=== PATIENT | male | born 1950 | race Caucasian/White ===

== ENCOUNTER 2018-11-28 22:30 | Emergency (ER) | payer MEDICARE, OTHER ==
[2018-11-28] MEDS ORDERED: cefTRIAXone 1 GM Vial IM ONE (22:45)
--- NOTE | 2018-11-28 22:48 | EDM.PDOC ---
ED HPI GENERAL MEDICAL PROBLEM - General Chief Complaint: Skin Complaint Stated Complaint: INFECTION ON LOWER LT LEG Time Seen by Provider: 11/28/18 22:48 - History of Present Illness INITIAL COMMENTS - FREE TEXT/NARRATIVE: HISTORY AND PHYSICAL: History of present illness: Patient 5-year-old white male presents with concern of cellulitis left leg he states approximately 9 days prior he injured this when he abraded it striking it on a footstool he denies fever chills nausea vomiting or other complaints he states this abrasion has had persistent redness and slight warmth there's been no fever no chills he states pain has improved Review of systems: As per history of present illness and below otherwise all systems reviewed and negative. Past medical history: As per history of present illness and as reviewed below otherwise noncontributory. Surgical history: As per history of present illness and as reviewed below otherwise noncontributory. Social history: No reported history of drug or alcohol abuse. Family history: As per history of present illness and as reviewed below otherwise noncontributory. Physical exam: HEENT: Atraumatic, normocephalic, pupils reactive, negative for conjunctival pallor or scleral icterus, mucous membranes moist, throat clear, neck supple, nontender, trachea midline. Lungs: Clear to auscultation, breath sounds equal bilaterally, chest nontender. Heart: S1S2, regular, negative for clicks, rubs, or JVD. Abdomen: Soft, nondistended, nontender. Negative for masses or hepatosplenomegaly. Negative for costovertebral tenderness. Pelvis: Stable nontender. Genitourinary: Deferred. Rectal: Deferred. Extremities: Patient has an excoriated area at the anterior aspect of his mid left leg some surrounding erythema slight warmth no fluctuance no crepitation CMS neurovascular exam is unremarkable Neuro: Awake, alert, oriented. Cranial nerves II through XII unremarkable. Cerebellum unremarkable. Motor and sensory unremarkable throughout. Exam nonfocal. Diagnostics: CBC CMP blood cultures 2 x-ray left tib-fib Therapeutics: Rocephin 1 g IM Impression: 1 cellulitis left leg Definitive disposition and diagnosis as appropriate pending reevaluation and review of above. - Related Data Allergies Allergy/AdvReac Type Severity Reaction Status Date / Time No Known Allergies Allergy Verified 08/16/16 10:57 Home Meds: Home Meds Tamsulosin [Flomax] 1 tab PO DAILY PRN 12/14/14 [History] Past Medical History - Past Health History Medical/Surgical History: Denies Medical/Surgical History Cardiovascular History: Reports: None Respiratory History: Reports: None Genitourinary History: Reports: None, BPH, Other (See Below) Neurological History: Reports: None Psychiatric History: Reports: None Endocrine/Metabolic History: Reports: None Hematologic History: Reports: None Immunologic History: Reports: None Oncologic (Cancer) History: Reports: None Dermatologic History: Reports: None - Infectious Disease History Infectious Disease History: Reports: Measles - Past Surgical History HEENT Surgical History: Reports: Cataract Surgery, Tonsillectomy GI Surgical History: Reports: Hernia, Inguinal Musculoskeletal Surgical History: Reports: Hip Replacement Social & Family History - Family History Family Medical History: Noncontributory - Caffeine Use Caffeine Use: Reports: Coffee Caffeine Use Comment: 3cups/day ED ROS GENERAL - Review of Systems Review Of Systems: ROS reveals no pertinent complaints other than HPI. ED EXAM, SKIN/RASH Exam: See Below (See dictation) Course - Orders/Labs/Meds Orders: Active Orders 24 hr Category Date Time Status Tibia Fibula Lt [CR] Stat Exams 11/28/18 22:45 Ordered CBC WITH AUTO DIFF [HEME] Stat Lab 11/28/18 22:44 Ordered COMPREHENSIVE METABOLIC PN,CMP [CHEM] Stat Lab 11/28/18 22:44 Ordered CULTURE BLOOD [BC] Stat Lab 11/28/18 22:45 Ordered CULTURE BLOOD [BC] Stat Lab 11/28/18 22:45 Ordered cefTRIAXone [Rocephin] Med 11/28/18 22:45 Once 1 gm IM ONETIME ONE Blood Culture x2 Reflex Set [OM.PC] Stat Oth 11/28/18 22:45 Ordered Departure - Departure Time of Disposition: 22:47 Disposition: Home, Self-Care 01 Condition: Good Clinical Impression: Cellulitis - Discharge Information Referrals: PCP,None [Primary Care Provider] - Additional Instructions: The following information is given to patients seen in the emergency department who are being discharged to home. This information is to outline your options for follow-up care. We provide all patients seen in our emergency department with a follow-up referral. The need for follow-up, as well as the timing and circumstances, are variable depending upon the specifics of your emergency department visit. If you don't have a primary care physician on staff, we will provide you with a referral. We always advise you to contact your personal physician following an emergency department visit to inform them of the circumstance of the visit and for follow-up with them and/or the need for any referrals to a consulting specialist. The emergency department will also refer you to a specialist when appropriate. This referral assures that you have the opportunity for followup care with a specialist. All of these measure are taken in an effort to provide you with optimal care, which includes your followup. Under all circumstances we always encourage you to contact your private physician who remains a resource for coordinating your care. When calling for followup care, please make the office aware that this follow-up is from your recent emergency room visit. If for any reason you are refused follow-up, please contact the [facility] emergency department at and asked to speak to the emergency department charge nurse. [facility] [address] [place] [id number] Bactrim as prescribed keep leg elevated follow-up wound recheck with private medical doctor in her clinic above called to schedule appointment return as needed as discussed - My Orders Last 24 Hours: My Active Orders 11/28/18 22:44 CBC WITH AUTO DIFF [HEME] Stat COMPREHENSIVE METABOLIC PN,CMP [CHEM] Stat 11/28/18 22:45 Tibia Fibula Lt [CR] Stat CULTURE BLOOD [BC] Stat CULTURE BLOOD [BC] Stat cefTRIAXone [Rocephin] 1 gm IM ONETIME ONE Blood Culture x2 Reflex Set [OM.PC] Stat - Assessment/Plan Last 24 Hours: My Active Orders 11/28/18 22:44 CBC WITH AUTO DIFF [HEME] Stat COMPREHENSIVE METABOLIC PN,CMP [CHEM] Stat 11/28/18 22:45 Tibia Fibula Lt [CR] Stat CULTURE BLOOD [BC] Stat CULTURE BLOOD [BC] Stat cefTRIAXone [Rocephin] 1 gm IM ONETIME ONE Blood Culture x2 Reflex Set [OM.PC] Stat
[2018-11-28 23:35] LABS: CHLORIDE,CL 106 mmol/L (98-107); SODIUM,NA 140 mmol/L (136-148)
--- NOTE | 2018-11-29 00:02 | CR ---
Indication: Left tibia-fibula infection. Technique: Two views, 4 films Comparison: None Findings/Impression: Mild soft tissue swelling without evidence of fracture or radiographic evidence of osteomyelitis. No subcutaneous air seen. Joint spaces are normally preserved. Dictated by Hayes Clarke MD @ Nov 28 2018 11:59PM Signed by Dr. Hayes Clarke @ Nov 29 2018 12:00AM
[2018-11-29 00:33] VITALS: BP 126/72
== END 2018-11-29 00:26 | disposition home or self-care (01) ==
LOC: MW.ED 22:30
DX: L03.116 Cellulitis of left lower limb (principal); Z98.49 Cataract extraction status, unspecified eye; Z98.890 Other specified postprocedural states
CPT/HCPCS: 36415; 73590; 80053; 85025; 87040; 96372; 99283; J0696; J2001

== ENCOUNTER 2018-11-30 15:21 | Emergency (ER) | payer MEDICARE, OTHER ==
--- NOTE | 2018-11-30 15:30 | EDM.PDOC ---
ED HPI GENERAL MEDICAL PROBLEM - General Chief Complaint: Skin Complaint Stated Complaint: RASH FROM MEDS Time Seen by Provider: 11/30/18 15:30 Source of Information: Reports: Patient History Limitations: Reports: No Limitations - History of Present Illness INITIAL COMMENTS - FREE TEXT/NARRATIVE: HISTORY AND PHYSICAL: History of present illness: Patient is a 68-year-old male who presents to the emergency room today with complaints of an allergic reaction from an antibiotic he was started on for treatment of cellulitis. Patient states approximately 2 weeks ago he had injured his left lower extremity resulting in a small laceration. He states it somewhat improved but over the past 4 days had noticed some redness and swelling to the lacerated area. He was evaluated in the emergency room on given a shot of Rocephin IM and started on Bactrim DS. He has had 4 doses of the Bactrim DS and since has noticed progressively worsening rash and itching to his axilla and groin area. He states that the soft tissue swelling and redness has seemed to improve to the cellulitic area. He has noticed the rash, groin itching and slight swelling of his upper lip. He has not taking any oral medications although has applied some Neosporin to the bilateral axilla Review of systems: As per history of present illness and below otherwise all systems reviewed and negative. Past medical history: As per history of present illness and as reviewed below otherwise noncontributory. Surgical history: As per history of present illness and as reviewed below otherwise noncontributory. Social history: See social history for further information Family history: As per history of present illness and as reviewed below otherwise noncontributory. Physical exam: General: Well-developed and well-nourished 68-year-old male. Alert and oriented. Nontoxic appearing and in no acute distress. HEENT: Atraumatic, normocephalic, pupils equal and reactive bilaterally, negative for conjunctival pallor or scleral icterus, mucous membranes moist, TMs normal bilaterally, throat clear, neck supple, nontender, trachea midline. No drooling or trismus noted. No meningeal signs. No hot potato voice noted. Lungs: Clear to auscultation, breath sounds equal bilaterally, chest nontender. Heart: S1S2, regular rate and rhythm without overt murmur Abdomen: Soft, nondistended, nontender. Negative for masses or hepatosplenomegaly. Negative for costovertebral tenderness. Pelvis: Stable nontender. Genitourinary: Deferred. Rectal: Deferred. Skin: Hives noted to bilateral axilla area. Mild erythema noted to bilateral groin area (appears as he's been scratching). Otherwise skin is intact, warm, dry. No lesions or rashes noted. Extremities: Atraumatic, moves all extremities per self without difficulty or deficits, negative for cords or calf pain. Neurovascular unremarkable. Neuro: Awake, alert, oriented. Cranial nerves II through XII unremarkable. Cerebellum unremarkable. Motor and sensory unremarkable throughout. Exam nonfocal. Notes: 11/28/2018: CBC and CMP are unremarkable. The x-ray of the tib-fib showed mild soft tissue swelling without evidence of fracture or osteomyelitis. Repeat CBC is within normal limits. I did offer him admission which he declines. Discussed signs and symptoms that would prompt him to return to the emergency room. Encouraged him to stop his Bactrim DS and now consider this an allergy. We'll start him on Keflex and a Medrol Dosepak. Supportive care measures were reviewed and discussed. Voices understanding and is agreeable to plan of care. Denies any further questions or concerns at this time. Diagnostics: CBC Therapeutics: Benadryl, Solu-Medrol Prescription: Keflex Impression: Allergic reaction Cellulitis Plan: 1. Stop taking the Bactrim DS. Please take the Keflex as prescribed. 2. While symptomatic continue to routinely take Benadryl 50mg every 4-6 hours and Zantac 150mg twice daily. Take the Medrol dose pack as prescribed. 3. You may use topical calamine lotion, cool tempid oatmeal baths, Aveeno bath/ lotions. 4. Please follow up with your Primary care doctor as we discussed. Return to the ED as needed and as discussed. Definitive disposition and diagnosis as appropriate pending reevaluation and review of above. - Related Data Allergies Allergy/AdvReac Type Severity Reaction Status Date / Time sulfamethoxazole Allergy Hives Verified 11/30/18 15:34 [From Bactrim] trimethoprim [From Bactrim] Allergy Hives Verified 11/30/18 15:34 Home Meds: Home Meds Tamsulosin [Flomax] 1 tab PO DAILY PRN 12/14/14 [History] cephALEXin [Keflex] 500 mg PO BID 10 Days #20 cap 11/30/18 [Rx] methylPREDNISolone [Medrol] 1 dose PO DAILY #1 dospk 11/30/18 [Rx] Past Medical History - Past Health History Medical/Surgical History: Denies Medical/Surgical History HEENT History: Reports: None Cardiovascular History: Reports: None Respiratory History: Reports: None Gastrointestinal History: Reports: None Genitourinary History: Reports: None, BPH, Other (See Below) Musculoskeletal History: Reports: None Neurological History: Reports: None Psychiatric History: Reports: None Endocrine/Metabolic History: Reports: None Hematologic History: Reports: None Immunologic History: Reports: None Oncologic (Cancer) History: Reports: None Dermatologic History: Reports: None - Infectious Disease History Infectious Disease History: Reports: Measles - Past Surgical History HEENT Surgical History: Reports: Cataract Surgery, Tonsillectomy GI Surgical History: Reports: Hernia, Inguinal Musculoskeletal Surgical History: Reports: Hip Replacement Social & Family History - Family History Family Medical History: Noncontributory - Caffeine Use Caffeine Use: Reports: Coffee Caffeine Use Comment: 3cups/day ED ROS GENERAL - Review of Systems Review Of Systems: ROS reveals no pertinent complaints other than HPI. ED EXAM, SKIN/RASH Exam: See Below (See dictation) Course - Vital Signs Last Recorded V/S: Last Vital Signs Temp 97.7 F 11/30/18 15:32 Pulse 82 11/30/18 15:32 Resp 16 11/30/18 15:32 BP 131/68 11/30/18 15:32 Pulse Ox 95 11/30/18 15:32 - Orders/Labs/Meds Labs: Laboratory Tests 11/30/18 Range/Units 15:57 WBC 6.37 (4.0-11.0) K/uL RBC 4.87 (4.50-5.90) M/uL Hgb 15.6 (13.0-17.0) g/dL Hct 44.5 (38.0-50.0) % MCV 91.4 (80.0-98.0) fL MCH 32.0 (27.0-32.0) pg MCHC 35.1 (31.0-37.0) g/dL RDW Std Deviation 43.3 (28.0-62.0) fl RDW Coeff of Skyla 13 (11.0-15.0) % Plt Count 163 (150-400) K/uL MPV 9.80 (7.40-12.00) fL Neut % (Auto) 74.5 (48.0-80.0) % Lymph % (Auto) 15.4 L (16.0-40.0) % [place] % (Auto) 8.0 (0.0-15.0) % Eos % (Auto) 1.9 (0.0-7.0) % Baso % (Auto) 0.2 (0.0-1.5) % Neut # (Auto) 4.8 (1.4-5.7) K/uL Lymph # (Auto) 1.0 (0.6-2.4) K/uL [place] # (Auto) 0.5 (0.0-0.8) K/uL Eos # (Auto) 0.1 (0.0-0.7) K/uL Baso # (Auto) 0.0 (0.0-0.1) K/uL Nucleated RBC % 0.0 /100WBC Nucleated RBCs # 0 K/uL Meds: Medications Discontinued Medications Generic Name Dose Route Start Last Admin Trade Name Freq PRN Reason Stop Dose Admin Diphenhydramine HCl 50 mg 11/30/18 15:35 11/30/18 15:49 Benadryl PO 11/30/18 15:36 50 mg ONETIME ONE Administration Methylprednisolone Sodium Succinate 125 mg 11/30/18 15:35 11/30/18 15:48 Solu-Medrol IM 11/30/18 15:36 125 mg ONETIME ONE Administration Departure - Departure Time of Disposition: 15:42 Disposition: Home, Self-Care 01 Clinical Impression: Allergic reaction caused by a drug Qualifiers: Encounter type: initial encounter Qualified Code(s): T78.40XA - Allergy, unspecified, initial encounter Cellulitis Qualifiers: Site of cellulitis: extremity Site of cellulitis of extremity: lower extremity Laterality: left Qualified Code(s): L03.116 - Cellulitis of left lower limb - Discharge Information Prescriptions: cephALEXin [Keflex] 500 mg PO BID 10 Days #20 cap methylPREDNISolone [Medrol] 1 dose PO DAILY #1 dospk Referrals: PCP,None [Primary Care Provider] - Forms: ED Department Discharge Additional Instructions: The following information is given to patients seen in the emergency department who are being discharged to home. This information is to outline your options for follow-up care. We provide all patients seen in our emergency department with a follow-up referral. The need for follow-up, as well as the timing and circumstances, are variable depending upon the specifics of your emergency department visit. If you don't have a primary care physician on staff, we will provide you with a referral. We always advise you to contact your personal physician following an emergency department visit to inform them of the circumstance of the visit and for follow-up with them and/or the need for any referrals to a consulting specialist. The emergency department will also refer you to a specialist when appropriate. This referral assures that you have the opportunity for follow-up care with a specialist. All of these measure are taken in an effort to provide you with optimal care, which includes your follow-up. Under all circumstances we always encourage you to contact your private physician who remains a resource for coordinating your care. When calling for follow-up care, please make the office aware that this follow-up is from your recent emergency room visit. If for any reason you are refused follow-up, please contact the [facility] Emergency Department at and asked to speak to the emergency department charge nurse. [facility] [address] [place] [id number] [place] [address] 1. Stop taking the Bactrim DS. Please take the Keflex as prescribed. 2. While symptomatic continue to routinely take Benadryl 50mg every 4-6 hours and Zantac 150mg twice daily. Take the Medrol dose pack as prescribed. 3. You may use topical calamine lotion, cool tempid oatmeal baths, Aveeno bath/ lotions. 4. Please follow up with your Primary care doctor as we discussed. Return to the ED as needed and as discussed.
[2018-11-30 15:34] VITALS: BP 131/68
[2018-11-30] MEDS ORDERED: methylPREDNISolone Sodium Succinate 125 MG/2 ML SDV IM ONE (15:35)
[2018-11-30] MEDS ORDERED: diphenhydrAMINE 50 MG Cap PO ONE (15:35)
== END 2018-11-30 16:35 | disposition home or self-care (01) ==
LOC: MW.ED 15:21
DX: L50.0 Allergic urticaria (principal); T36.8X5A Adverse effect of other systemic antibiotics, initial encounter; L03.116 Cellulitis of left lower limb; Z88.2 Allergy status to sulfonamides; Z88.1 Allergy status to other antibiotic agents
CPT/HCPCS: 36415; 85025; 96372; 99283; A9270; J2930

== ENCOUNTER 2021-05-05 10:47 | Emergency (ER) | payer MEDICARE, OTHER ==
[2021-05-05] MEDS ORDERED: Sodium Chloride 0.9% 1,000 ML IV ONE (11:00)
[2021-05-05] MEDS ORDERED: Sodium Chloride 0.9% 2.5 ML Syringe FLUSH PRN (11:00)
[2021-05-05] MEDS ORDERED: Sodium Chloride 0.9% 10 ML Syringe FLUSH PRN (11:00)
--- NOTE | 2021-05-05 11:02 | EDM.PDOC ---
ED HPI GENERAL MEDICAL PROBLEM - General Chief Complaint: Neuro Symptoms/Deficits Stated Complaint: MEMORY LOSS/CONFUSION Time Seen by Provider: 05/05/21 10:49 - History of Present Illness INITIAL COMMENTS - FREE TEXT/NARRATIVE: HISTORY AND PHYSICAL: History of present illness: Is a 70-year-old gentleman with no significant past medical history who presents ER today secondary to confusion that was noted by a friend. 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 His friends were concerned that he did not show up and did not call so they went to the house. Upon arrival to his home patient appeared to be confused and repeating words and saying things that did not make sense. Upon arrival to the ED, the patient appears to be alert awake and orient x3 and is able to give me a relatively good history. Patient denies any history of hypertension, diabetes, liver, lung, kidney problems. Patient denies any history of heart disease or strokes in the past. Patient reports that he had his booster shot for Covid yesterday in his right arm and did not sleep well last night after his immunization. Patient reports that he does not feel confused at this time. He reports he does feel fatigued and tired. Friend who is with patient reports that normally he is extremely sharp and she is able to have a very clear conversation with him however today she was having a hard time having a normal conversation with him. Patient's friend reports that he would start having tangential thoughts during conversations and would sometimes forget what he was saying. She reports that he was having a hard time coming up with the right words during our conversation. Patient reports that he lives alone. Patient reports no family members here in [place] and that his daughter lives in [facility]. Patient denies any recent head trauma or injury. Patient denies any headache or nuchal rigidity. Patient has any photophobia, double vision, blurred vision, weakness to his upper or lower extremities, difficulty walking. Patient denies any dysuria, frequency, urgency. Patient denies any recent fevers, shakes, chills, cough, URI symptoms, abdominal pain, chest pain. Review of systems: As per history of present illness and below otherwise all systems reviewed and negative. Past medical history: As per history of present illness and as reviewed below otherwise noncontributory. Surgical history: As per history of present illness and as reviewed below otherwise noncontributory. Social history: No reported history of drug abuse. Family history: As per history of present illness and as reviewed below otherwise noncontributory. Physical exam: This patient was seen and evaluated during the 2019 SARS-CoV-2 novel coronavirus pandemic period. Community viral transmission is ongoing at time of this encounter and the emergency department is operating under pandemic response procedures. Constitutional: Patient is oriented to person, place, and time. Appears well- developed and well-nourished. No distress. HEENT: Moist mucous membranes Head: Normocephalic and atraumatic Eyes: Right eye exhibits no discharge. Left eye exhibits no discharge. No scleral icterus Neck: Normal range of motion. No tracheal deviation present. Cardiovascular: Normal rate and regular rhythm. Pulmonary: Effort normal, no respiratory distress. Abdominal: No distention Musculoskeletal: Normal range of motion Neurologic: Alert and oriented to person, place and time. Skin: Muniz, warm and dry. Psychiatric: Normal mood and affect. Behavior is normal. Judgment and thought content normal. Neuro: A&Ox3. Cranial nerves II-XII grossly intact, 5/5 strength to bilateral upper and lower extremities, sensation intact to bilateral upper and lower extremities, no nystagmus, PERRLA, EOMI, normal speech, proprioception intact to bilateral lower extremities, normal finger to nose test, gait normal Nursing note and vital signs have been reviewed 1a) Level of consciousness: 0=alert; 1=not alert but arousable by minor stimulation; 2=not alert: requires repeated stimulation to attend or is obtunded and requires strong or painful stimulation to make movements; 3=responds only with reflex motor or autonomic effects or totally unresponsive, flaccid and areflexic SCORE 0 1b) LOC questions ("what month is it?", "how old are you?"): 0=answers both correctly; 1=answers one correctly; 2=answers neither correctly SCORE 0 1c) LOC commands (command patient to "open and close your eyes. Stadium Manager and release your hand.): 0=performs both correctly; 1=performs one correctly; 2=performs neither correctly SCORE 0 2) Best gaze ("follow my finger"): 0=normal; 1=partial gaze palsy; 2=forced deviation or total gaze paresis SCORE 0 3) Visual almazan (use confrontation, finger counting, or visual threat. confront upper/lower quadrants of visual field): 0=no visual loss; 1=partial hemianopsia; 2=complete hemianopsia; 3=bilateral hemianopsia SCORE 0 4) Facial palsy (by words or pantomime, encourage patient to: "Show me your teeth. Raise your eyebrows. Close your eyes."): 0=normal symmetrical movement; 1=minor paralysis (flattened nasolabial fold, asymmetry on smiling); 2=partial paralysis (lower face); 3=complete paralysis SCORE 0 5) Arm motor (alternately position patient's arms. extend each arm with palms down [90 degrees if sitting, 45 degrees if supine] - test each arm in turn and start with nonparetic arm first): 0=no drift; 1=drift (arm falls before 10 seconds); 2=some effort vs. gravity; 3=no effort vs. gravity; 4=no movement; UN (untestable)=amputation or joint fusion SCORE 0 6) Leg motor (alternately position patient's legs. extend each leg [30 degrees, always while supine] - test nonparetic leg first): 0=no drift; 1=drift (leg falls before 5 seconds); 2=some effort vs. gravity; 3= no effort vs. gravity; 4=no movement; UN=amputation or joint fusion SCORE 0 7) Limb ataxia (ask patient [eyes open] to: "touch your finger to your nose. touch your heel to your sage"): 0=absent; 1=present in one limb; 2=present in two or more limbs; UN=amputation or joint fusion SCORE 0 8) Sensory (test as many body parts as possible [arms and not hands, legs, deniz nk, face] for sensation using pinprick or noxious stimuli 0): 0=normal; 1=mild to moderate sensory loss; 2=severe to total sensory loss SCORE 0 9) Best language (using pictures and a sentence list, ask patient to "describe what you see in this picture. Name the items in this picture. Read these sentences"): 0=no aphasia, 1=mild to moderate aphasia; 2=severe aphasia; 3=mute, global aphasia SCORE 0 10) Dysarthria (using a simple word list, ask patient to: "read these words" or "repeat these words"): 0=normal articulation; 1=mild to moderate dysarthria; 2=severe dysarthria; UN=intubated or other physical barrier SCORE 0 11) Extinction and inattention (sufficient information to determine these scores may have been obtained during the prior testing): 0=no abnormality; 1=visual, tactile, auditory, spatial or personal inattention; 2=profound zulma-inattention or extinction to more than one modality SCORE 0 TOTAL NIHSS Score:0 Diagnostics: EKG: As interpreted by ER physician: Yoshi: Nonspecific ST-T wave abnormalities Normal axis No evidence of ST elevation GA Normal sinus rhythm heart rate of 100 May 05, 2021 11:17 AM CBC, CMP within normal limits. Therapeutics: NSS x1 L Assessment and plan: This is a 70-year-old gentleman who was brought into the ER today secondary to confusion noted by friends. Patient reports that he had his Covid vaccine yesterday and today did not feel well so did not go to work. His friend were concerned because normally he would call if he did not going to work however today the did not receive any phone calls for him so they went to his house to check up on him. They report that when they went to check up on him he was not acting like himself and was can fused and having a hard time having a conversation with them. The friends report that he is at baseline is extremely articulate and they are able to have normal conversation with him however they felt that today he was more confused than usual. Patient in the ED is alert aw gilma and orient x3 and appears appropriate but does have episodes of confusion with regards to forgetting words that he was about to say and his train of thought. Patient reports that he did have his Covid vaccination yesterday and did not sleep well. Patient's labs are all within normal limits. Patient CT scan of his head did not reveal any acute pathology. We will obtain a urine patient 12:43 PM: Patient's labs are all within normal limits. Patient has a normal CBC, CMP, urinalysis, CT of his head. Patient has been monitored here in the ED for approximately 2 hours. Patient has remained stable during that time period. I have discussed with the patient the option of admitting him for observation secondary to the concern from his friends of his confusion. Patient reports he does not wish to be admitted to the hospital and does not feel confused. Patient reports that he feels well and thinks he was just fatigued from not sleeping well last night and is requesting to be discharged home. At this time, the patient is refusing to be admitted. I did discuss with the patient that is a possibility that he might have a small stroke that I do given his symptoms. Patient reports that he does not feel that he had a stroke and he feels that he is at his baseline and just tired. Patient currently is exhibiting both capacity and the competency for medical decision-making. Utilizing shared decision making, I feel that the patient can be safely discharged home and I will respect his autonomy and allow him to be discharged per his request. Patient understands to return back to the ED if he should change his mind or develop any new or concerning symptoms. Reassessment at the time of disposition demonstrates that the patient is in no acute distress. The patient has remained stable throughout the entire ED visit and is without objective evidence for acute process requiring urgent intervention or hospitalization. The patient is stable for discharge, counseling is provided as documented above, discussed symptomatic treatment and specific conditions for return. I have spoken with the patient/caregiver and discussed todays findings, in addition to providing specific details for the plan of care. Questions are answered and there is agreement with the plan. Definitive disposition and diagnosis as appropriate pending reevaluation and review of above. - Related Data Allergies Allergy/AdvReac Type Severity Reaction Status Date / Time sulfamethoxazole Allergy Hives Verified 05/05/21 11:14 [From Bactrim] trimethoprim [From Bactrim] Allergy Hives Verified 05/05/21 11:14 Home Meds: Home Meds Tamsulosin [Flomax] 1 tab PO DAILY PRN 12/14/14 [History] methylPREDNISolone [Medrol] 1 dose PO DAILY #1 dospk 11/30/18 [Rx] Past Medical History - Past Health History Medical/Surgical History: Denies Medical/Surgical History HEENT History: Reports: None Cardiovascular History: Reports: None Respiratory History: Reports: None Gastrointestinal History: Reports: None Genitourinary History: Reports: None, BPH, Other (See Below) Musculoskeletal History: Reports: None Neurological History: Reports: None Psychiatric History: Reports: None Endocrine/Metabolic History: Reports: None Hematologic History: Reports: None Immunologic History: Reports: None Oncologic (Cancer) History: Reports: None Dermatologic History: Reports: None - Infectious Disease History Infectious Disease History: Reports: Measles - Past Surgical History HEENT Surgical History: Reports: Cataract Surgery, Tonsillectomy GI Surgical History: Reports: Hernia, Inguinal Musculoskeletal Surgical History: Reports: Hip Replacement Social & Family History - Family History Family Medical History: No Pertinent Family History - Caffeine Use Caffeine Use: Reports: Coffee Caffeine Use Comment: 3cups/day ED ROS GENERAL - Review of Systems Review Of Systems: See Below ED EXAM, GENERAL - Physical Exam Exam: See Below Course - Vital Signs Last Recorded V/S: Last Vital Signs Temp 98.2 F 05/05/21 12:34 Pulse 60 05/05/21 12:34 Resp 18 05/05/21 12:34 BP 142/79 H 05/05/21 12:34 Pulse Ox 97 05/05/21 12:34 - Orders/Labs/Meds Orders: Active Orders 24 hr Category Date Time Status UA W/MAKI RFLX IF INDICATED [URIN] Stat Lab 05/05/21 12:33 Ordered Sodium Chloride 0.9% [Saline Flush] Med 05/05/21 11:00 Active 10 ml FLUSH ASDIRECTED PRN Sodium Chloride 0.9% [Saline Flush] Med 05/05/21 11:00 Active 2.5 ml FLUSH ASDIRECTED PRN Saline Lock Insert [OM.PC] Stat Oth 05/05/21 11:00 Ordered Medication Orders Sodium Chloride (Sodium Chloride 0.9% 10 Ml Syringe) 10 ml FLUSH ASDIRECTED PRN PRN Reason: Keep Vein Open Last Admin: 05/05/21 11:19 Dose: 10 ml Documented by: RACHEL Sodium Chloride (Sodium Chloride 0.9% 2.5 Ml Syringe) 2.5 ml FLUSH ASDIRECTED PRN PRN Reason: Keep Vein Open Last Admin: 05/05/21 11:19 Dose: 2.5 ml Documented by: RACHEL Labs: Laboratory Tests 05/05/21 05/05/21 05/05/21 Range/Units 10:53 11:15 11:15 WBC 7.43 (4.0-11.0) K/uL RBC 5.33 (4.50-5.90) M/uL Hgb 17.2 H (13.0-17.0) g/dL Hct 47.6 (38.0-50.0) % MCV 89.3 (80.0-98.0) fL MCH 32.3 H (27.0-32.0) pg MCHC 36.1 (31.0-37.0) g/dL RDW Std Deviation 41.7 (28.0-62.0) fl RDW Coeff of Skyla 13 (11.0-15.0) % Plt Count 170 (150-400) K/uL MPV 9.70 (7.40-12.00) fL Neut % (Auto) 87.9 H (48.0-80.0) % Lymph % (Auto) 6.7 L (16.0-40.0) % Glasscock % (Auto) 5.0 (0.0-15.0) % Eos % (Auto) 0.1 (0.0-7.0) % Baso % (Auto) 0.3 (0.0-1.5) % Neut # (Auto) 6.5 H (1.4-5.7) K/uL Lymph # (Auto) 0.5 L (0.6-2.4) K/uL Glasscock # (Auto) 0.4 (0.0-0.8) K/uL Eos # (Auto) 0.0 (0.0-0.7) K/uL Baso # (Auto) 0.0 (0.0-0.1) K/uL Nucleated RBC % 0.0 /100WBC Nucleated RBCs # 0 K/uL Sodium 137 (136-148) mmol/L Potassium 4.2 (3.5-5.1) mmol/L Chloride 103 (98-107) mmol/L Carbon Dioxide 21.9 (21.0-32.0) mmol/L BUN 15 (7.0-18.0) mg/dL Creatinine 1.1 (0.8-1.3) mg/dL Est Cr Clr Drug Dosing 64.65 mL/min Estimated GFR (MDRD) > 60.0 ml/min Glucose 141 H (74-106) mg/dL POC Glucose 151 H (70-99) mg/dL Calcium 8.0 L (8.5-10.1) mg/dL Total Bilirubin 2.0 H (0.2-1.0) mg/dL AST 40 H (15-37) IU/L ALT 44 (14-63) IU/L Alkaline Phosphatase 87 (46-116) U/L Troponin I < 0.050 (0.000-0.056) ng/mL Total Protein 7.3 (6.4-8.2) g/dL Albumin 3.8 (3.4-5.0) g/dL Globulin 3.5 (2.6-4.0) g/dL Albumin/Globulin Ratio 1.1 (0.9-1.6) Urine Color Urine Appearance Urine pH (5.0-8.0) Ur Specific Swengel (1.001-1.035) Urine Protein (NEGATIVE) mg/dL Urine Glucose (UA) (NEGATIVE) mg/dL Urine Ketones (NEGATIVE) mg/dL Urine Occult Blood (NEGATIVE) Urine Nitrite (NEGATIVE) Urine Bilirubin (NEGATIVE) Urine Urobilinogen (<2.0) EU/dL Ur Leukocyte Esterase (NEGATIVE) Ethyl Alcohol <3 mg/dL 05/05/21 Range/Units 12:14 WBC (4.0-11.0) K/uL RBC (4.50-5.90) M/uL Hgb (13.0-17.0) g/dL Hct (38.0-50.0) % MCV (80.0-98.0) fL MCH (27.0-32.0) pg MCHC (31.0-37.0) g/dL RDW Std Deviation (28.0-62.0) fl RDW Coeff of Skyla (11.0-15.0) % Plt Count (150-400) K/uL MPV (7.40-12.00) fL Neut % (Auto) (48.0-80.0) % Lymph % (Auto) (16.0-40.0) % Glasscock % (Auto) (0.0-15.0) % Eos % (Auto) (0.0-7.0) % Baso % (Auto) (0.0-1.5) % Neut # (Auto) (1.4-5.7) K/uL Lymph # (Auto) (0.6-2.4) K/uL Glasscock # (Auto) (0.0-0.8) K/uL Eos # (Auto) (0.0-0.7) K/uL Baso # (Auto) (0.0-0.1) K/uL Nucleated RBC % /100WBC Nucleated RBCs # K/uL Sodium (136-148) mmol/L Potassium (3.5-5.1) mmol/L Chloride (98-107) mmol/L Carbon Dioxide (21.0-32.0) mmol/L BUN (7.0-18.0) mg/dL Creatinine (0.8-1.3) mg/dL Est Cr Clr Drug Dosing mL/min Estimated GFR (MDRD) ml/min Glucose (74-106) mg/dL POC Glucose (70-99) mg/dL Calcium (8.5-10.1) mg/dL Total Bilirubin (0.2-1.0) mg/dL AST (15-37) IU/L ALT (14-63) IU/L Alkaline Phosphatase (46-116) U/L Troponin I (0.000-0.056) ng/mL Total Protein (6.4-8.2) g/dL Albumin (3.4-5.0) g/dL Globulin (2.6-4.0) g/dL Albumin/Globulin Ratio (0.9-1.6) Urine Color YELLOW Urine Appearance CLEAR Urine pH 6.5 (5.0-8.0) Ur Specific Swengel 1.015 (1.001-1.035) Urine Protein NEGATIVE (NEGATIVE) mg/dL Urine Glucose (UA) NEGATIVE (NEGATIVE) mg/dL Urine Ketones NEGATIVE (NEGATIVE) mg/dL Urine Occult Blood NEGATIVE (NEGATIVE) Urine Nitrite NEGATIVE (NEGATIVE) Urine Bilirubin NEGATIVE (NEGATIVE) Urine Urobilinogen 0.2 (<2.0) EU/dL Ur Leukocyte Esterase NEGATIVE (NEGATIVE) Ethyl Alcohol mg/dL Meds: Medications Generic Name Dose Route Start Last Admin Trade Name Freq PRN Reason Stop Dose Admin Sodium Chloride 10 ml 05/05/21 11:00 05/05/21 11:19 Sodium Chloride 0.9% 10 Ml Syringe FLUSH 10 ml ASDIRECTED PRN Administration Keep Vein Open Sodium Chloride 2.5 ml 05/05/21 11:00 05/05/21 11:19 Sodium Chloride 0.9% 2.5 Ml Syringe FLUSH 2.5 ml ASDIRECTED PRN Administration Keep Vein Open Discontinued Medications Generic Name Dose Route Start Last Admin Trade Name Freq PRN Reason Stop Dose Admin Sodium Chloride 1,000 mls @ 999 mls/hr 05/05/21 11:00 05/05/21 11:19 Normal Saline IV 05/05/21 12:00 999 mls/hr .Bolus ONE Administration Departure - Departure Time of Disposition: 12:47 Disposition: Home, Self-Care 01 Condition: Good Clinical Impression: Confusion, Side effects of vaccination - Discharge Information Instructions: Confusion Referrals: PCP,None [Primary Care Provider] - Forms: ED Department Discharge Additional Instructions: Your seen and evaluated in the ER today secondary to your friends concerns that you might have some confusion or stroke. The CT scan of your head that we obtained did not show any evidence of a stroke. All your blood tests and urinalysis were within normal limits. At this time, we will respect your request to be discharged home however if you should change her mind, please return to the ER so that we can reevaluate you and possibly admit you to the hospital. Please go home and get plenty of rest, drink plenty of fluids, and call your doctor to make an appointment to be reevaluated by them early next week. The following information is given to patients seen in the emergency department who are being discharged to home. This information is to outline your options for follow-up care. We provide all patients seen in our emergency department with a follow-up referral. The need for follow-up, as well as the timing and circumstances, are variable depending upon the specifics of your emergency department visit. If you don't have a primary care physician on staff, we will provide you with a referral. We always advise you to contact your personal physician following an emergency department visit to inform them of the circumstance of the visit and for follow-up with them and/or the need for any referrals to a consulting specialist. The emergency department will also refer you to a specialist when appropriate. This referral assures that you have the opportunity for follow-up care with a specialist. All of these measure are taken in an effort to provide you with optimal care, which includes your follow-up. Under all circumstances we always encourage you to contact your private physician who remains a resource for coordinating your care. When calling for follow-up care, please make the office aware that this follow-up is from your recent emergency room visit. If for any reason you are refused follow-up, please contact the [facility] Emergency Department at and asked to speak to the emergency department charge nurse. [facility] - Primary [facility] [address] [place] [address] [facility] [address] [place] [address] Sepsis Event Note (ED) - Focused Exam Vital Signs: Vital Signs Temp Pulse Resp BP Pulse Ox 05/05/21 12:34 98.2 F 60 18 142/79 H 97 05/05/21 11:29 58 L 18 155/84 H 97 05/05/21 10:50 98.0 F 70 18 168/89 H 98 - My Orders Last 24 Hours: My Active Orders 05/05/21 11:00 Sodium Chloride 0.9% [Saline Flush] 10 ml FLUSH ASDIRECTED PRN Sodium Chloride 0.9% [Saline Flush] 2.5 ml FLUSH ASDIRECTED PRN Saline Lock Insert [OM.PC] Stat 05/05/21 12:33 UA W/MAKI RFLX IF INDICATED [URIN] Stat - Assessment/Plan Last 24 Hours: My Active Orders 05/05/21 11:00 Sodium Chloride 0.9% [Saline Flush] 10 ml FLUSH ASDIRECTED PRN Sodium Chloride 0.9% [Saline Flush] 2.5 ml FLUSH ASDIRECTED PRN Saline Lock Insert [OM.PC] Stat 05/05/21 12:33 UA W/MAKI RFLX IF INDICATED [URIN] Stat
--- NOTE | 2021-05-05 11:57 | CR ---
Indication: Confusion Comparison: None available. Technique: Single AP view chest Findings: There is hyperinflation and chronic interstitial change. There is no focal consolidation, effusion, or pneumothorax. The cardiac silhouette is mildly prominent with a tortuous thoracic aorta. The bony thorax is grossly intact. Impression: Hyperinflation and chronic interstitial changes without evidence of dense consolidation. Dictated by Yoseph Cardenas MD @ 05/05/2021 11:56:27 AM (Electronically Signed)
[2021-05-05 11:59] LABS: BLOOD UREA NITROGEN,BUN 15 mg/dL (7.0-18.0); CARBON DIOXIDE,CO2 21.9 mmol/L (21.0-32.0); CHLORIDE,CL 103 mmol/L (98-107); GLUCOSE RANDOM 141 mg/dL (74-106); POTASSIUM,K 4.2 mmol/L (3.5-5.1); SODIUM,NA 137 mmol/L (136-148)
--- NOTE | 2021-05-05 12:37 | CT ---
Indication: Confusion Technique: Volumetric multidetector CT images of the head were obtained without the administration of low osmolar intravenous contrast. Comparison: None available Findings: There is no intra-axial or extra-axial fluid collection. There is no mass effect or midline shift. There is age-related cortical atrophy with moderate sulcal widening and ex vacuo dilatation of the lateral ventricles. There are chronic small vessel disease changes in the subcortical and periventricular white matter without lost yuan-white differentiation. The orbits and their contents are grossly within normal limits. The bony calvarium is grossly intact. The paranasal sinuses are clear. The mastoid air cells are well aerated. Impression: 1. Age-related changes of the brain without acute intracranial abnormality. Please note that all CT scans at this facility use dose modulation, iterative reconstruction, and/or weight-based dosing when appropriate to reduce radiation dose to as low as reasonably achievable. Dictated by Yoseph Cardenas MD @ 05/05/2021 12:36:14 PM (Electronically Signed)
[2021-05-05 13:24] VITALS: BP 158/82; PULSE 93
== END 2021-05-05 13:30 | disposition home or self-care (01) ==
LOC: MW.ED 10:47
DX: R41.0 Disorientation, unspecified (principal); T50.B95A Adverse effect of other viral vaccines, initial encounter; N40.0 Benign prostatic hyperplasia without lower urinary tract symptoms; Z88.2 Allergy status to sulfonamides; Z79.899 Other long term (current) drug therapy
CPT/HCPCS: 36415; 70450; 71045; 80053; 80307; 81003; 82947; 84484; 85025; 93005; 99285; J7030

== ENCOUNTER 2023-09-20 11:36 | Emergency (ER) | payer MEDICARE, OTHER ==
[2023-09-20] MEDS: Sodium Chloride 0.9% 2.5 ML Syringe FLUSH PRN (12:00)
[2023-09-20] MEDS: Lactated Ringers 1,000 ML IV ONE (12:00)
[2023-09-20] MEDS: Sodium Chloride 0.9% 10 ML Syringe FLUSH PRN (12:00)
[2023-09-20 12:08] LABS: BASOPHILS ABSOLUTE AUTO 0.03 K/uL (0.00-0.20); BASOPHILS PERCENT AUTO 0.5 % (0.0-1.0); EOSINOPHILS ABSOLUTE AUTO 0.12 K/uL (0.00-0.45); EOSINOPHILS PERCENT AUTO 1.8 % (0.0-6.0); HEMATOCRIT 46.9 % (42.0-52.0); HEMOGLOBIN 16.6 g/dL (14.0-18.0); IMMATURE GRAN ABSOLUTE AUTO 0.01 K/uL (0.00-0.05); IMMATURE GRAN PERCENT AUTO 0.2 % (0.0-0.4); LYMPHOCYTES ABSOLUTE AUTO 1.85 K/uL (1.00-4.80); LYMPHOCYTES PERCENT AUTO 28.3 % (24.0-44.0); MEAN CORPUSCULAR HEMOGLOBIN 31.5 pg (28.0-32.0); MEAN CORPUSCULAR HGB CONC 35.4 g/dL (32.0-36.0); MEAN PLATELET VOLUME 9.4 fL (9.4-12.4); MONOCYTES PERCENT AUTO 9.2 % (0.0-8.0); NEUTROPHILS ABSOLUTE AUTO 3.93 K/uL (1.80-7.70); PLATELET COUNT,PLT 184 K/uL (150-400); RED BLOOD CELL COUNT 5.27 M/uL (4.52-5.90); WHITE BLOOD CELL COUNT,WBC 6.54 K/uL (3.9-11.3)
[2023-09-20 12:54] LABS: A/G RATIO 1.2 (0.9-1.6); ALBUMIN 3.6 g/dL (3.4-5.0); BILIRUBIN TOTAL 1.4 mg/dL (0.2-1.0); CALCIUM 8.6 mg/dL (8.5-10.1); CARBON DIOXIDE,CO2 26.2 mmol/L (21.0-32.0); CREATININE 1.1 mg/dL (0.8-1.3); EST CRCL DRUG DOSING (CG) 63.69 mL/min; MAGNESIUM 1.8 mg/dL (1.8-2.4); POTASSIUM,K 4.2 mmol/L (3.5-5.1); PROTEIN TOTAL,TP 6.7 g/dL (6.4-8.2); TSH ULTRASENSITIVE 1.9 uIU/mL (0.36-3.74)
[2023-09-20 15:06] VITALS: BP 126/84; PULSE 101
== END 2023-09-20 14:00 ==
LOC: MW.ED 11:36
DX: I48.91 Unspecified atrial fibrillation (principal); R79.89 Other specified abnormal findings of blood chemistry; Z79.82 Long term (current) use of aspirin; Z79.899 Other long term (current) drug therapy; Z88.2 Allergy status to sulfonamides
CPT/HCPCS: 36415; 80053; 83735; 84443; 84484; 85025; 85379; 93005; 99285; J3490; J7120

== ENCOUNTER 2023-11-13 06:08 | Emergency (ER) | payer MEDICARE, OTHER ==
[2023-11-13 07:50] VITALS: BP 130/72; PULSE 93
== END 2023-11-13 07:51 | disposition home or self-care (01) ==
LOC: MW.ED 06:08
DX: K59.00 Constipation, unspecified (principal); I10 Essential (primary) hypertension; Z88.2 Allergy status to sulfonamides; Z88.8 Allergy status to other drugs, medicaments and biological substances; Z79.82 Long term (current) use of aspirin; Z79.899 Other long term (current) drug therapy; Z86.19 Personal history of other infectious and parasitic diseases; Z90.49 Acquired absence of other specified parts of digestive tract
CPT/HCPCS: 99283

== ENCOUNTER 2023-12-02 16:47 | Emergency (ER) | payer MEDICARE, OTHER ==
[2023-12-02 18:28] VITALS: BP 132/87; PULSE 79
== END 2023-12-02 17:20 | disposition left against medical advice (07) ==
LOC: MW.ED 16:47
DX: Z53.21 Procedure and treatment not carried out due to patient leaving prior to being seen by health care provider (principal)

== ENCOUNTER 2023-12-13 16:32 | Emergency (ER) | payer MEDICARE, OTHER ==
[2023-12-13 17:45] VITALS: BP 138/57; PULSE 65
== END 2023-12-13 17:44 | disposition home or self-care (01) ==
LOC: MW.ED 16:32
DX: A69.20 Lyme disease, unspecified (principal); I10 Essential (primary) hypertension; Z90.49 Acquired absence of other specified parts of digestive tract; Z79.82 Long term (current) use of aspirin; Z75.8 Other problems related to medical facilities and other health care; Z88.1 Allergy status to other antibiotic agents; Z79.2 Long term (current) use of antibiotics; Z79.899 Other long term (current) drug therapy
CPT/HCPCS: 99282; 99283

== ENCOUNTER 2024-05-22 17:26 | Emergency (ER) | payer MEDICARE, OTHER ==
[2024-05-22 18:07] LABS: BASOPHILS ABSOLUTE AUTO 0.03 K/uL (0.00-0.20); BASOPHILS PERCENT AUTO 0.3 % (0.0-1.0); EOSINOPHILS ABSOLUTE AUTO 0.03 K/uL (0.00-0.45); EOSINOPHILS PERCENT AUTO 0.3 % (0.0-6.0); HEMATOCRIT 50.1 % (42.0-52.0); IMMATURE GRAN ABSOLUTE AUTO 0.03 K/uL (0.00-0.05); IMMATURE GRAN PERCENT AUTO 0.3 % (0.0-0.4); LYMPHOCYTES ABSOLUTE AUTO 1.99 K/uL (1.00-4.80); LYMPHOCYTES PERCENT AUTO 20.6 % (24.0-44.0); MEAN CORPUSCULAR HEMOGLOBIN 30.4 pg (28.0-32.0); MEAN CORPUSCULAR HGB CONC 33.9 g/dL (32.0-36.0); MEAN CORPUSCULAR VOLUME 89.6 fL (83.0-99.0); MEAN PLATELET VOLUME 9.4 fL (9.4-12.4); MONOCYTES ABSOLUTE AUTO 0.74 K/uL (0.00-0.80); MONOCYTES PERCENT AUTO 7.7 % (0.0-8.0); NEUTROPHILS ABSOLUTE AUTO 6.83 K/uL (1.80-7.70); NEUTROPHILS PERCENT AUTO 70.8 % (41.0-71.0); PLATELET COUNT,PLT 231 K/uL (150-400); RED BLOOD CELL COUNT 5.59 M/uL (4.52-5.90); WHITE BLOOD CELL COUNT,WBC 9.65 K/uL (3.9-11.3)
[2024-05-22] MEDS: Sodium Chloride 0.9% 1,000 ML IV ONE (18:24)
[2024-05-22] MEDS: Diltiazem 25 MG/5 ML SDV IVPUSH ONE ×2 (18:24→19:55)
[2024-05-22] MEDS: Sodium Chloride 0.9% 10 ML Syringe FLUSH PRN (18:24)
[2024-05-22 18:33] LABS: A/G RATIO 1.3 (0.9-1.6); ALBUMIN 3.7 g/dL (3.4-5.0); BILIRUBIN TOTAL 0.7 mg/dL (0.2-1.0); CALCIUM 8.3 mg/dL (8.5-10.1); CARBON DIOXIDE,CO2 25.7 mmol/L (21.0-32.0); CREATININE 1.2 mg/dL (0.8-1.3); EST CRCL DRUG DOSING (CG) 56.65 mL/min; POTASSIUM,K 4.2 mmol/L (3.5-5.1); PROTEIN TOTAL,TP 6.6 g/dL (6.4-8.2); TSH ULTRASENSITIVE 1.56 uIU/mL (0.36-3.74)
[2024-05-22] MEDS: Sodium Chloride 0.9% 2.5 ML Syringe FLUSH PRN (19:55)
[2024-05-23 01:36] VITALS: BP 107/72; PULSE 89
== END 2024-05-22 21:53 | disposition home or self-care (01) ==
LOC: MW.ED 17:26
DX: I48.91 Unspecified atrial fibrillation (principal); I10 Essential (primary) hypertension; Z90.49 Acquired absence of other specified parts of digestive tract; Z79.899 Other long term (current) drug therapy; Z79.52 Long term (current) use of systemic steroids; Z88.2 Allergy status to sulfonamides; Z75.8 Other problems related to medical facilities and other health care
CPT/HCPCS: 36415; 71045; 80053; 84443; 85025; 93005; 96374; 96376; 99285; J3490; J7030; 93010; 99284

== ENCOUNTER 2025-02-13 09:38 | Emergency (ER) | payer MEDICARE, OTHER ==
[2025-02-13] MEDS: Tetracaine HCl/PF 0.5% 4 ML Bottle EYELF ONE (10:52)
[2025-02-13] MEDS: Fluorescein 1 MG Ophth Strip EYELF ONE (10:52)
[2025-02-13 11:33] VITALS: BP 139/69; PULSE 63
== END 2025-02-13 11:39 | disposition home or self-care (01) ==
LOC: MW.ED 09:38
DX: S05.02XA Injury of conjunctiva and corneal abrasion without foreign body, left eye, initial encounter (principal); I10 Essential (primary) hypertension; I48.91 Unspecified atrial fibrillation; Z88.2 Allergy status to sulfonamides; Z88.8 Allergy status to other drugs, medicaments and biological substances; Z79.899 Other long term (current) drug therapy; Z90.49 Acquired absence of other specified parts of digestive tract; X58.XXXA Exposure to other specified factors, initial encounter
CPT/HCPCS: 99282; 99283; J3490